=== PATIENT | female | born 1985 | race Caucasian/White ===

== ENCOUNTER 2020-09-20 15:51 | Observation (INO) | payer MEDICAID ==
[~2020-09-20] VITALS: Ht 165.1 cm; Wt 85.3 kg
== END 2020-09-20 20:10 | disposition home or self-care (01) ==
LOC: 8 EST LDRP 15:51 → UNDODISOB 20:10
PROVIDERS: ADMIT Specialist; ATTEND Specialist
DX: O26.853 Spotting complicating pregnancy, third trimester (principal); Z3A.31 31 weeks gestation of pregnancy
CPT/HCPCS: 76805; 76818; G0378; 99281